=== PATIENT | female | born 1970 | race Hispanic/Latino ===

== ENCOUNTER 2018-04-19 12:29 | Emergency (ER) | payer MEDICAID, OTHER ==
[2018-04-19 12:29] VITALS: BMI 23.5
[2018-04-19 12:55] VITALS: RESP 18
[2018-04-19] MEDS ORDERED: Albuterol 0.083% Inhal Sol (2.5 mg/3 mL) UD INH STA ×2 (13:18→14:27)
[2018-04-19 14:13] LABS: BASO # 0.02 K/mm3 (0.0-2.0); BASO % 0.1 % (0.0-3.0); EOS % 0.1 % (1.5-5.0); GRAN # 17.12 (1.4-6.5); GRAN % 93.6 % (50.0-68.0); HEMOGLOBIN 13.2 g/dL (12.0-16.0); LYMPH # 0.7 (1.2-3.4); LYMPH % 3.8 % (22.0-35.0); MEAN CELL VOLUME 86.3 fl (80.0-105.0); MEAN CORPUSCULAR HEMOGLOBIN 28.8 pg (25.0-35.0); MEAN CORPUSCULAR HGB CONC 33.3 g/dl (31.0-37.0); MEAN PLATELET VOLUME 9.8 fl (7.0-11.0); MONO # 0.4 (0.1-0.6); MONO % 2.4 % (1.0-6.0); PLATELET COUNT 123 10^3/uL (120.0-450.0); RBC 4.59 10^6/uL (3.5-6.1); RED CELL DISTRIBUTION WIDTH 15.2 % (11.5-14.5); WHITE BLOOD COUNT 18.3 10^3/uL (4.5-11.0)
[2018-04-19 14:23] LABS: INR 1.36; PARTIAL THROMBOPLASTIN TIME 29.5 Seconds (25.1-36.5); PROTHROMBIN TIME 15.6 SECONDS (9.4-12.5)
[2018-04-19 14:24] LABS: ALB/GLOB RATIO 1.1 (1.1-1.8); ALBUMIN 3.5 g/dL (3.0-4.8); ALT/SGPT 49 U/L (7-56); AST/SGOT 37 U/L (14-36); BLOOD UREA NITROGEN 9 mg/dL (7-21); CALCIUM 8.5 mg/dL (8.4-10.5); GFR NON-AFRICAN AMERICAN > 60
--- NOTE | 2018-04-19 14:27 | ED PDOC ---
Arrival/HPI - General Chief Complaint: Cough, Cold, Congestion Historian: Patient - History of Present Illness Narrative History of Present Illness (Text): 04/19/18 14:22 47yo female with no pmhx who present with two weeks history of worsening nonproductive cough, fever. States she didn't see a Doctor because she didn't have insurance. She reports history of tobacco smoking. 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 Reports chest pain with cough. Denies SOB, diaphoresis, night sweat, any other complaint. Past Medical History - Provider Review Nursing Documentation Reviewed: Yes - Infectious Disease Hx of Infectious Diseases: None - Tetanus Immunization Tetanus Immunization: Unknown - Psychiatric Hx Depression: No Hx Emotional Abuse: No Hx Physical Abuse: No Hx Substance Use: No - Anesthesia Hx Anesthesia: No - Suicidal Assessment Feels Threatened In Home Enviroment: No Family/Social History - Physician Review Nursing Documentation Reviewed: Yes Family/Social History: Unknown Family HX Smoking Status: Current Some Days Smoker Hx Alcohol Use: No Hx Substance Use: No Hx Substance Use Treatment: No Allergies/Home Meds Allergies/Adverse Reactions: Allergies No Known Allergies Allergy (Verified 04/19/18 12:55) Review of Systems - Physician Review All systems were reviewed & negative as marked: Yes - Review of Systems Constitutional: Fevers Eyes: Normal ENT: Normal Respiratory: Cough Cardiovascular: Normal Gastrointestinal: Normal Genitourinary Female: Normal Musculoskeletal: Normal Skin: Normal Neurological: Normal Endocrine: Normal Hemo/Lymphatic: Normal Psychiatric: Normal Physical Exam Vital Signs Reviewed: Yes Vital Signs Temp Pulse Resp BP Pulse Ox 04/19/18 13:40 101.9 F H 04/19/18 12:52 101.2 F H 110 H 18 135/74 95 Temperature: Febrile Blood Pressure: Normal Pulse: Tachycardic Respiratory Rate: Normal Appearance: Positive for: Well-Appearing, Non-Toxic, Comfortable Pain Distress: None Mental Status: Positive for: Alert and Oriented X 3 - Systems Exam Head: Present: Atraumatic, Normocephalic Pupils: Present: PERRL Extroacular Muscles: Present: EOMI Conjunctiva: Present: Normal Mouth: Present: Moist Mucous Membranes Neck: Present: Normal Range of Motion Respiratory/Chest: Present: Clear to Auscultation, Good Air Exchange, Wheezes (Diffuse wheeze). No: Respiratory Distress, Accessory Muscle Use, Decreased Breath Sounds, Rales, Retracting, Rhonchi Cardiovascular: Present: Regular Rate and Rhythm, Normal S1, S2. No: Murmurs Abdomen: No: Tenderness, Distention, Peritoneal Signs Back: Present: Normal Inspection Upper Extremity: Present: Normal Inspection. No: Cyanosis, Edema Lower Extremity: Present: Normal Inspection. No: Edema Neurological: Present: GCS=15, CN II-XII Intact, Speech Normal Skin: Present: Warm, Dry, Normal Color. No: Rashes Psychiatric: Present: Alert, Oriented x 3, Normal Insight, Normal Concentration Medical Decision Making ED Course and Treatment: 04/19/18 15:31 47yo female present with complaint of cough and fever x 2weeks. Las CXR Blood culture Albuterol, Promethazine DM Labs was reviewed and WBC of 18.3 was noted Blood culture pending Chest xray - IMPRESSION: Right middle lobe pneumonia A dose of Levaqiun ordered in ED. Pt have no medical history and have not taken any antibiotic. she is not hypoxic in ED. She will be DC home at this time with a rx of Levaquin. PT advised to return to ED for worsening or persistent symptom counselled on smoking cessation Referred to the clinic - Lab Interpretations Lab Results: 04/19/18 13:50 Lab Results 04/19/18 13:50: WBC 18.3 H, RBC 4.59, Hgb 13.2, Hct 39.6, MCV 86.3, MCH 28.8, MCHC 33.3, RDW 15.2 H, Plt Count 123, MPV 9.8, Gran % 93.6 H, Lymph % (Auto) 3.8 L, Amador % (Auto) 2.4, Eos % (Auto) 0.1 L, Baso % (Auto) 0.1, Gran # 17.12 H, Lymph # (Auto) 0.7 L, Amador # (Auto) 0.4, Eos # (Auto) 0.0, Baso # (Auto) 0.02, Neutrophils % (Manual) Pending, Lymphocytes % (Manual) Pending, Monocytes % (Manual) Pending 04/19/18 13:20: Influenza Typ A,B (EIA) Negative for flu a/b - RAD Interpretation Radiology Orders: 04/19/18 13:03 CHEST TWO VIEWS (PA/LAT) [RAD] Stat - Medication Orders Current Medication Orders: Discontinued Medications Acetaminophen (Tylenol 325mg Tab) 650 mg PO STAT STA Stop: 04/19/18 13:20 Last Admin: 04/19/18 13:40 Dose: 650 mg MAR Pain/Vitals Document 04/19/18 13:40 EW (Rec: 04/19/18 13:40 [facility] [id number]) Vitals Temperature (97.6 F-99.6 F) 101.9 F Temperature Source Oral Albuterol Sulfate (Albuterol 0.083% Inhal Kayli (2.5 Mg/3 Ml) Ud) 2.5 mg INH STAT STA Stop: 04/19/18 13:19 Last Admin: 04/19/18 13:40 Dose: 2.5 mg Methylprednisolone (Solu-Medrol) 125 mg IVP STAT STA Stop: 04/19/18 13:19 Last Admin: 04/19/18 13:40 Dose: 125 mg IVP Administration Document 04/19/18 13:40 EW (Rec: 04/19/18 13:41 [id number] Charges for Administration # of IVP Administrations 1 Disposition/Present on Arrival - Present on Arrival Any Indicators Present on Arrival: No History of DVT/PE: No History of Uncontrolled Diabetes: No Urinary Catheter: No History of Decub. Ulcer: No History Surgical Site Infection Following: None - Disposition Have Diagnosis and Disposition been Completed?: Yes Diagnosis: Pneumonia Disposition: HOME/ ROUTINE Disposition Time: 16:00 Patient Plan: Discharge Patient Problems: Current Active Problems Problem Status Onset Pneumonia Acute Condition: STABLE Discharge Instructions (ExitCare): Pneumonia in Adults Additional Instructions: Take medications as directed Follow up with your Doctor/clinic Return to ED for worsening symptoms Prescriptions: RX: Albuterol HFA [Ventolin HFA 90 mcg/actuation (8 g)] 2 puff IH [id number] #1 puff Levofloxacin [Levaquin] 500 mg PO DAILY #6 tablet RX: Promethazine/Codeine [Phenergan/Codeine Oral Syrup] 118 ml PO Q6 #5 udc Referrals: FAMILY PROVIDER,NO [Primary Care Provider] - Follow up with primary Poly Vogel MD [Medical Doctor] - Follow up with primary [facility] [Outside] - Follow up with primary [facility] [Outside] - Follow up with primary Forms: [employer] (Azeri)
[2018-04-19] MEDS ORDERED: Promethazine 6.25 MG/5 ML CUP PO STA (14:28)
[2018-04-19 14:44] LABS: ATYPICAL LYMPHOCYTE 2 % (0.0-0.0); LARGE PLATELETS PRESENT; LYMPHOCYTE 2 % (22.0-35.0); MONOCYTE 5 % (1.0-6.0); NEUTROPHIL 91 % (50.0-70.0)
[2018-04-19] MEDS ORDERED: levoFLOXacin 500 mg in D5W 500 MG/100 ML BAG IVPB STA (15:31)
--- NOTE | 2018-04-19 15:59 | RAD ---
Date of service: 04/19/2018 HISTORY: cough COMPARISON: 10/09/2012 TECHNIQUE: Chest PA and lateral FINDINGS: LUNGS: There is a dense alveolar infiltrate in the right middle lobe consistent with pneumonia PLEURA: No significant pleural effusion identified. No pneumothorax apparent. CARDIOVASCULAR: No aortic atherosclerotic calcification present. Normal cardiac size. No pulmonary vascular congestion. OSSEOUS STRUCTURES: No significant abnormalities. VISUALIZED UPPER ABDOMEN: Normal. OTHER FINDINGS: None. IMPRESSION: Right middle lobe pneumonia
[2018-04-19 16:47] VITALS: BP 132/89; PULSE 95; TEMP 99.7; O2SAT 98
== END 2018-04-19 16:47 | disposition home or self-care (01) ==
LOC: ED 12:29
DX: J18.9 Pneumonia, unspecified organism (principal); Z72.0 Tobacco use
CPT/HCPCS: 71046; 80053; 85025; 85610; 85730; 87040; 87804; 96365; 96375; 99283; J2930